=== PATIENT | male | born 1995 | race Caucasian/White ===

== ENCOUNTER 2022-08-12 15:49 | Emergency (ER) | payer OTHER ==
--- NOTE | 2022-08-12 16:16 | ED Physician Documentation ---
PD HPI HEAD INJURY - Stated complaint Stated Complaint: HEAD INJ - Chief complaint Chief Complaint: Trauma Hd/Nk - History obtained from History obtained from: Patient - History of Present Illness Pain level max: 5 Pain level now: 5 Location of injury: Top Quality of pain: Pain, Throbbing, Aching Associated symptoms: AMS, Nausea / vomiting (Nausea without vomiting), Neck pain. No: LOC, Paresthesias, Seizures, Ear drainage, Nasal drainage Symptoms improve with: Rest Symptoms worsen with: Movement, Light Contributing factors: No: Anticoagulated, Intoxicated - Additional information Additional information: 27-year-old male works for a [employer], at approximately 10 AM, approximately 6 hours prior to arrival he struck his head wall trying to duck underneath a low hanging roof. He complains of continued headache, feels like he is having difficulty putting sentences together. He feels dizzy. Has had nausea but no vomiting. No seizure activity. No loss of consciousness. Does not take any medications at home. Worse with movement, better with rest. He states he has mild neck pain as well. No numbness or tingling. Review of Systems Constitutional: denies: Fever, Chills Nose: denies: Rhinorrhea / runny nose, Congestion Respiratory: denies: Cough GI: reports: Nausea. denies: Vomiting, Diarrhea Skin: denies: Rash Musculoskeletal: denies: Back pain Neurologic: denies: Focal weakness, Numbness, Seizure, Confused, Altered mental status, Headache, LOC PD PAST MEDICAL HISTORY - Past Medical History Past Medical History: No - Past Surgical History Past Surgical History: No - Present Medications Home Medications: Ambulatory Orders Medication Instructions Recorded Confirmed No Known Home Medications 08/12/22 08/12/22 - Allergies Allergies/Adverse Reactions: Allergies Allergy/AdvReac Type Severity Reaction Status Date / Time Penicillins Allergy Rash Verified 08/12/22 15:57 - Living Situation Living Situation: reports: With family Living Arrangement: reports: At home - Family History Family history: reports: Non contributory PD ED PE NORMAL - Vitals Vital signs reviewed: Yes - General General: Alert and oriented X 3, No acute distress - HEENT HEENT: Atraumatic (No scalp hematomas. No palpable skull fractures.), PERRL, EOMI, Ears normal, Moist mucous membranes, Pharynx benign - Neck Neck: Supple, no meningeal sign, Other (Mild upper C-spine tenderness to palpation. No step-off or deformity.) - Cardiac Cardiac: RRR, Strong equal pulses - Respiratory Respiratory: No respiratory distress, Clear bilaterally - Abdomen Abdomen: Soft, Non tender, Non distended - Back Back: No CVA TTP, No spinal TTP - Derm Derm: Warm and dry, No rash - Extremities Extremities: No edema, No calf tenderness / cord - Neuro Neuro: Alert and oriented X 3, inside wireman 2-12 intact, No motor deficit, No sensory deficit, Normal speech Eye Opening: Spontaneous Motor: Obeys Commands Verbal: Oriented GCS Score: 15 - Psych Psych: Normal mood, Normal affect Results - Vitals Vitals: Vital Signs - 24 hr 08/12/22 15:56 Temperature 36.3 C L Heart Rate 105 H Respiratory 16 Rate Blood Pressure 151/86 H O2 Saturation 98 Oxygen O2 Source Room air - Rads (name of study) head ct Relevant Findings:: Final report received, See rad report cervical spine ct Relevant Findings:: Final report received, See rad report PD Medical Decision Making - ED course Complexity details: reviewed results, re-evaluated patient, considered differential, d/w patient ED course: Patient with feelings of confusion and feels like he is having trouble stringing sentences together after a head injury earlier today. Nausea but no vomiting. Given the persistent headache and the persistent feeling of confusion, head CT will be performed. Cervical spine CT will be performed as well given his mild neck pain and tenderness. Neurovascularly intact. No neurological deficits. No other acute injuries. We will continue supportive care and have him follow-up with his doctor for further care. No acute findings on head CT or cervical spine CT. Patient counseled regarding signs and symptoms for which I believe and urgent re-evaluation would be necessary. Patient with good understanding of and agreement to plan and is comfortable going home at this time This document was made in part using voice recognition software. While efforts are made to proofread this document, sound alike and grammatical errors may occur. L&I paperwork completed Departure - Departure Disposition: Home, Self Care Clinical Impression: Closed head injury Qualifiers: Encounter type: initial encounter Qualified Code(s): S09.90XA - Unspecified injury of head, initial encounter Condition: Good Instructions: ED Head Injury Closed Follow-Up: your,doctor as needed [Other] Comments: Your head CT and cervical spine CT do not show any acute abnormalities. Please follow-up with your doctor as needed for further care. You can use Motrin or Tylenol for headaches. Please return if you worsen.
--- NOTE | 2022-08-12 16:40 | CT Report ---
PROCEDURE: CERVICAL SPINE WO INDICATIONS: head vs roof,head and neck pain TECHNIQUE: Noncontrast 3 mm thick sections acquired from the skull base to the T4 level. Sagittal and coronal r eformats were then constructed. For radiation dose reduction, the following was used: automated exp osure control, adjustment of mA and/or kV according to patient size. COMPARISON: None. FINDINGS: Image quality: Excellent. Bones: No fractures or dislocations. Visualized superior ribs are intact. Soft tissues: Prevertebral soft tissues are normal in thickness. No paravertebral hematomas. No ap ical pneumothoraces. IMPRESSION: No acute, displaced fracture or traumatic subluxation. Reviewed by: Hernan Michele on 08/12/2022 4:39 PM PDT Approved by: Hernan Michele on 08/12/2022 4:39 PM PDT Station ID: [id number]
--- NOTE | 2022-08-12 16:47 | CT Report ---
PROCEDURE: HEAD WO INDICATIONS: head vs roof,head and neck pain TECHNIQUE: Noncontrast 4.5 mm thick angled axial sections acquired from the foramen magnum to the vertex. For r adiation dose reduction, the following was used: automated exposure control, adjustment of mA and/or kV according to patient size. COMPARISON: None. FINDINGS: Image quality: Excellent. CSF spaces: Basal cisterns are patent. No extra-axial fluid collections. Ventricles are normal in size and shape. Brain: No midline shift. No intracranial masses or hemorrhage. Jack-white matter interface is norm al. Skull and face: Calvarium and visualized facial bones are intact, without suspicious lesions. Sinuses: Visualized sinuses and mastoids are clear. IMPRESSION: No acute intracranial abnormality. Reviewed by: Vinay Prakash on 08/12/2022 4:46 PM PDT Approved by: Vinay Prakash on 08/12/2022 4:46 PM PDT Station ID: [id number]
[2022-08-12 17:11] VITALS: BP 143/84
== END 2022-08-12 17:07 | disposition home or self-care (01) ==
LOC: ED 15:49
DX: S09.90XA Unspecified injury of head, initial encounter (principal); X58.XXXA Exposure to other specified factors, initial encounter; Y99.0 Civilian activity done for income or pay
CPT/HCPCS: 99283; 99284